=== PATIENT | female | born 1980 | race Caucasian/White ===

== ENCOUNTER 2022-08-05 06:57 | Day surgery (SDC) | payer BC ==
[2022-08-02 13:21] LABS: Absolute Lymphocytes (CBC) 3.2 K/uL (0.7-4.9); Lymphocytes % 29.6 % (15.3-44.8); MPV 7.7 fL (7.6-11.3); RBC Red Blood Cell Count 4.59 M/uL (3.86-4.86)
[2022-08-02 13:38] LABS: Albumin 3.7 g/dL (3.4-5.0); Bilirubin Direct 0.1 mg/dL (0-0.2); Bilirubin Total 0.5 mg/dL (0.2-1.0); Potassium 3.6 mmol/L (3.5-5.1); Protein, Total 7.4 g/dL (6.4-8.2)
--- NOTE | 2022-08-02 14:51 | RAD REPORT ---
EXAM DESCRIPTION: Sasha Machado (2 Views)08/02/2022 1:23 pm CLINICAL HISTORY: Preop for gallbladder surgery COMPARISON: None FINDINGS: The lungs appear clear of acute infiltrate. The heart is normal size IMPRESSION: No acute abnormalities displayed
--- NOTE | 2022-08-03 12:36 | EKG ---
Test Date: 2022-08-02 Test Time: 13:08:28 Relay Shop Tester: PUNEET MEASUREMENT RESULTS: Intervals: Rate: 79 AR: 166 QRSD: 86 QT: 354 QTc: 405 [place]: P: 65 AR: 166 QRS: 55 T: 50 INTERPRETIVE STATEMENTS: Normal sinus rhythm Normal ECG No previous ECG available for comparison Electronically Signed On 08-03-22 12:35:45 CDT by Ashkan Johnson
[2022-08-05] MEDS ORDERED: propofoL 200 MG/20 ML VIAL IV ONE (07:57)
[2022-08-05] MEDS ORDERED: FENTANYL CITR 100 MCG/2 ML ONE (07:58)
[2022-08-05] MEDS ORDERED: ROCURONIUM 50 MG/5 ML VIAL IV ONE (07:58)
[2022-08-05] MEDS ORDERED: LIDOCAINE 2% MPF 5 ML VIAL ONE (07:59)
[2022-08-05] MEDS ORDERED: dexAMETHasone 10 MG/ML VIAL ONE (07:59)
[2022-08-05] MEDS ORDERED: MIDAZOLAM HCL 2 MG/2 ML INJ ONE (08:00)
[2022-08-05] MEDS ORDERED: KETOROLAC 30 MG/ML INJ ONE (08:00)
[2022-08-05] MEDS ORDERED: ONDANSETRON 4 MG/2 ML VIAL ONE (08:00)
[2022-08-05] MEDS ORDERED: CELECOXIB 100 MG CAPSULE ONE (08:17)
[2022-08-05] MEDS ORDERED: ACETAMINOPHEN 500 MG TAB ONE (08:18)
[2022-08-05] MEDS ORDERED: SCOPOLAMINE HYDROBROMIDE PATCH TD ONE (08:18)
[2022-08-05] MEDS ORDERED: NS 0.9% VIAL 10 ML ONE (09:33)
[2022-08-05] MEDS ORDERED: GLYCOPYRROLATE 0.2 MG/ML SYR ONE (10:17)
[2022-08-05] MEDS ORDERED: NEOSTIGMINE 1 MG/ML -5 ML ONE (10:17)
[2022-08-05] MEDS ORDERED: Ringers Lactate 1,000 ML IV ONE (10:24)
--- NOTE | 2022-08-05 10:27 | P.BOP ---
Preoperative diagnosis: acute cholecystitis, symptomatic cholelithiasis Postoperative diagnosis: same Primary procedure: Laparoscopic cholecystectomy Bullet Assembly Press Setter Operator: DARIEL ALEJANDRA (DIETETICS DIRECTOR) Estimated blood loss: <10cc Specimen: gb Findings: as above Anesthesia: General Complications: None Transferred to: ICU Condition: Good
[2022-08-05] MEDS: PROMETHAZINE INJ 25 MG/ML AMP ONE ×2 (10:45→11:05)
[2022-08-05] MEDS ORDERED: HYDROMORPHONE HCL 1 MG/ML INJ ONE (11:09)
[2022-08-05] MEDS ORDERED: METOCLOPRAMIDE 10 MG/2mL INJ ONE (12:17)
[2022-08-05] MEDS ORDERED: HYDROCODONE/APAP 10/325 TAB ONE (13:09)
[2022-08-05 13:26] VITALS: BP 155/87; TEMP 96.8; O2SAT 98
--- NOTE | 2022-08-05 22:21 | OP ---
Date of Procedure: 08/05/2022 Surgeon: Dawit Landa MD Diagnoses: Acute cholecystitis, symptomatic cholelithiasis. Postoperative Diagnoses: Acute cholecystitis, symptomatic cholelithiasis. Procedure: Laparoscopic cholecystectomy. Anesthesia: General plus local. Complications: None. Estimated Blood Loss: Less than 10 cc. Indication: This is a case of a 41-year-old patient comes to us with above diagnoses. Fully explain ed the benefits, alternatives, and risks of laparoscopic possible, open cholecystectomy, which includ e, but not limited to infection, bleeding, damage to adjacent structures, anesthesia complication, ch oledocholithiasis, bile leak, pancreatitis, TN, and even . She also understands this may not re lieve the symptoms. She might need more than one surgical intervention. She understood, signed a co nsent. We also explained to her the importance of losing weight. She weighs right now 240 and 5 fee t tall. She should discuss that with the primary doctor for alternatives of trying to lose some weig ht. Description Of Procedure: The patient was brought to the operating room, placed in supine position a nesthesia was done without complication. Abdominal area was prepped and draped in usual sterile fash ion. Marcaine 0.5% was injected for local anesthetic followed by sharp incision of the skin in the i nfraumbilical region. Incision was carried down to fascia, which was opened under direct vision. Pe ritoneum was encountered, opened under direct vision. Vicryl #1 placed inside the fascia. Daniel tr ocar was carefully introduced. Pneumoperitoneum was obtained. I proceeded to place 3 more trocars, 5 mm each one of them, in epigastric, right upper quadrant area under direct visualization. This all owed me to put a grasper in the fundus of the gallbladder. The gallbladder is distended, so we used an Endo needle under direct visualization and deflated the gallbladder partially. We put a grasper i n the area, removed the needle under direct visualization, put another grasper in the infundibulum, r etracting the gallbladder in the inferolateral fashion exposing the triangle of Calot, obtaining crit ical view. The cystic duct and cystic artery were clearly isolated, freed circumferentially and a co nnection between those and the gallbladder were clearly identified. I proceeded to ligate those by u sing at least 3 clips proximal, 1 clip distal, ligation in middle. Same was done with the cystic art beni. No bile leak. No bleeding. The gallbladder was removed from liver using Bovie cauterizer and removed from abdominal cavity using EndoCatch through the umbilical incision. The area was inspected once again. Clips were intact. No bile leak. No bleeding. Gallbladder fossa with no bleeding. A t that moment, I proceeded to remove the trocars under direct visualization. Deflated pneumoperitone um. Closed the fascia with #1 Vicryl. Irrigated subcu incision, closed that with 3-0 chromic and sk in with a subcuticular fashion with 3-0 chromic and Steri-Strips on top. Sponge count and instrument counts correct. Patient tolerated the procedure well. Patient was sent to recovery in stable condi tion. Disposition: Home. Activity: As tolerated. No heavy lifting. Followup: My office in 1 week. Call for appointment at [phone]. Keep the area dry for 48 hours, t hen may shower. Keep Steri-Strips intact. We will call a prescription from the office. RUCHI Voice ID: [id number] Report ID: [id number]
== END 2022-08-05 13:25 | disposition home or self-care (01) ==
LOC: OR 06:57
PROVIDERS: ATTEND Surgery
PROC: 0FT44ZZ Resection of Gallbladder, Percutaneous Endoscopic Approach (ICD-10-PCS; principal; 2022-08-05 09:15)
DX: K80.10 Calculus of gallbladder with chronic cholecystitis without obstruction (principal); R10.11 Right upper quadrant pain
CPT/HCPCS: 93005; 85025; 80048; 36415; 82150; 80076; 88304; 83690; 71046; 47562; J2704; J2765; J2550; J2001; J2250; J3010; J1100; A4216; J1170; J2710; J7120; J2405

== ENCOUNTER 2022-08-06 03:18 | Emergency (ER) | payer BC ==
[2022-08-06] MEDS ORDERED: HYDROMORPHONE HCL 1 MG/ML INJ ONE ×2 (04:01→06:41)
[2022-08-06] MEDS ORDERED: NA CHLORIDE 0.9% 1,000 ML ONE (04:01)
[2022-08-06] MEDS ORDERED: ONDANSETRON 4 MG/2 ML VIAL ONE (04:01)
[2022-08-06 04:38] LABS: Absolute Lymphocytes (CBC) 2.7 K/uL (0.7-4.9); Hematocrit 41.1 % (36.0-45.0); MPV 7.5 fL (7.6-11.3); RBC Red Blood Cell Count 4.89 M/uL (3.86-4.86)
[2022-08-06 04:57] LABS: Albumin 3.9 g/dL (3.4-5.0); Bilirubin Total 0.8 mg/dL (0.2-1.0); Potassium 3.5 mmol/L (3.5-5.1)
--- NOTE | 2022-08-06 06:23 | RAD REPORT ---
EXAM DESCRIPTION: CT - Abdomen Pelvis W Contrast - 08/06/2022 5:36 am CLINICAL HISTORY: abd pain post op chole1 the earlier COMPARISON: No comparisons TECHNIQUE: Biphasic, helical CT imaging of the abdomen and pelvis was performed following 100 ml non -ionic IV contrast. Oral contrast: No. All CT scans are performed using dose optimization technique as appropriate and may include automated exposure control or mA/KV adjustment according to patient size. FINDINGS: Lung base atelectasis seen. No focal infiltrate, aspiration or pleural fluid changes. No p ericardial effusion. The liver, spleen, and pancreas show no suspicious findings. Cholecystectomy clips are present. No he matoma or other abnormality in the gallbladder fossa. No biliary tree dilatation. Symmetric renal function is seen with no hydronephrosis or suspicious renal mass. No pyelonephritis o r acute parenchymal process. No bladder abnormalities. No adrenal abnormalities. Uterus and ovaries s how no suspicious findings. IUD is in place. No dilated bowel loops or bowel wall thickening. No appendicitis findings. Minimal free fluid is seen in the peritoneal cavity well within normal limits for post outpatient. Minimal air and stranding se en in the periumbilical surgical access site. There is additional broad area of contusion and small a benita of the area in the subcutaneous fatty tissues of the right mid abdomen also from surgical axis . No large hematoma in the subcutaneous fat. No mass or bulky lymphadenopathy. No suspicious bony findings. IMPRESSION: Normal postoperative changes are seen in the peritoneal cavity. No peritoneal or retrope ritoneal significant finding. Broad area contusion with air in the subcutaneous fatty tissues of the right mid abdomen related to t he surgical access. No hematoma.
--- NOTE | 2022-08-06 06:31 | ER ---
Nurse's Notes [facility] Name: Criss Estrada Age: 41 yrs Sex: Female : 1980 Arrival Date: 08/06/2022 Time: 03:23 Bed 5 Private MD: Diagnosis: post operative pain Presentation: 08/06 03:33 Chief complaint: Patient states: she had her gallbladder removed yesterday morning by bb Dr Landa and she started having severe abdominal pain tonight around 1200 she took her tylenol #3 but it is not helping the pain is so bad she is dry heaving. Coronavirus screen: At this time, the client does not indicate any symptoms associated with coronavirus-19. Ebola Screen: No symptoms or risks identified at this time. Initial Sepsis Screen: Does the patient meet any 2 criteria? No. Patient's initial sepsis screen is negative. Does the patient have a suspected source of infection? No. Patient's initial sepsis screen is negative. Risk Assessment: Do you want to hurt yourself or someone else? Patient reports no desire to harm self or others. Onset of symptoms was August 06, 2022. 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 - Social history:: Smoking status: Patient denies any tobacco usage or history of. Screenin:53 Abuse screen: Denies threats or abuse. Denies injuries from another. Nutritional ll3 screening: No deficits noted. Tuberculosis screening: No symptoms or risk factors identified. Fall Risk None identified. Assessment: 04:00 General: Appears distressed, uncomfortable, obese, Behavior is restless. Pain: kl Complains of pain in epigastric area Pain currently is 10 out of 10 on a pain scale. Neuro: No deficits noted. Cardiovascular: No deficits noted. Respiratory: No deficits noted. GI: Reports lower abdominal pain. : No deficits noted. No signs and/or symptoms were reported regarding the genitourinary system. EENT: No deficits noted. No signs and/or symptoms were reported regarding the EENT system. Derm: No deficits noted. No signs and/or symptoms reported regarding the dermatologic system. Vital Signs: 03:33 BP 145 / 85; Pulse 88; Resp 20 S; Temp 98.3(O); Pulse Ox 96% on R/A; Weight 108.86 kg bb (R); Height 5 ft. 6 in. (167.64 cm) (R); Pain 10/10; 05:42 BP 141 / 79; Pulse 88; Resp 17; Pulse Ox 96% on R/A; ll3 06:54 BP 124 / 77; Pulse 84; Resp 17; Pulse Ox 96% on R/A; ll3 03:33 Body Mass Index 38.74 (108.86 kg, 167.64 cm) bb ED Course: 03:23 Patient arrived in ED. bp1 03:32 Shabnam Lockwood MD is Attending Physician. sp3 03:35 Triage completed. bb 03:35 Arm band placed on Patient placed in an exam room, on a stretcher, on pulse oximetry. bb Family accompanied patient. 04:24 CBC with Diff Sent. kd3 04:24 CMP Sent. kd3 04:24 Lipase Sent. kd3 04:24 Inserted saline lock: 20 gauge in right antecubital area, using aseptic technique. kd3 Blood collected. ultrasound guided. 05:38 CT Abd/Pelvis - IV Contrast Only In Process Unspecified. EDMS 06:30 Dawit Landa MD is Referral Physician. sp3 06:53 Patient has correct armband on for positive identification. Placed in gown. Bed in low ll3 position. Call light in reach. Side rails up X 1. Adult w/ patient. 06:53 No provider procedures requiring assistance completed. IV discontinued, intact, ll3 bleeding controlled, No redness/swelling at site. Pressure dressing applied. Administered Medications: 04:21 Drug: NS 0.9% 1000 ml Route: IV; Rate: 1 bolus; Site: right antecubital; kd3 06:56 Follow up: Response: No adverse reaction; IV Status: Completed infusion; IV Intake: ll3 1000ml 04:21 Drug: Zofran (Ondansetron) 4 mg Route: IVP; Site: right antecubital; kd3 06:56 Follow up: Response: No adverse reaction ll3 04:21 Drug: Dilaudid (HYDROmorphone) 1 mg Route: IVP; Site: right antecubital; kd3 05:31 Follow up: Response: No adverse reaction; Marked relief of symptoms 06:48 Drug: Dilaudid (HYDROmorphone) 1 mg Route: IVP; Site: right antecubital; ll3 06:56 Follow up: Response: Medication administered at discharge. ll3 Medication: 06:54 VIS not applicable for this client. ll3 Intake: 06:56 IV: 1000ml; Total: 1000ml. ll3 Outcome: 06:30 Discharge ordered by . sp3 06:53 Discharged to home via wheelchair, with family, with significant other. ll3 06:53 Condition: stable 06:53 Discharge instructions given to patient, significant other, Instructed on discharge instructions, follow up and referral plans. Demonstrated understanding of instructions, follow-up care. 06:56 Patient left the ED. ll3 Signatures: Dispatcher [employer] EDMigdalia Damico RN RN kl Ballard, Brenda, RN RN bb Paniauga, Brittany bp1 Patel, Setul, MD MD sp3 Jamison Heaton RN RN ll3 Enid Rouse RN RN kd3
--- NOTE | 2022-08-06 06:31 | EDPHYS ---
Physician Documentation [facility] Name: Criss Estrada Age: 41 yrs Sex: Female : 1980 Arrival Date: 08/06/2022 Time: 03:23 Bed 5 Private MD: ED Physician Shabnam Lockwood HPI: 08/06 03:39 This 41 yrs old Female presents to ER via Ambulatory with complaints of Post Surgical sp3 Pain. 03:39 41-year-old female with no significant past medical history presents approximately 12 sp3 hours after laparoscopic cholecystectomy performed by Dr. Landa earlier today at this facility. Patient states that she went home at approximately 2 PM had like crackers and soup and has been taking her Tylenol 3 periodically as instructed. Approximately 4:56 PM, her pain started to increase and was represented by sharp pain epigastrically radiating around to the right side. The pain is causing her to dry heave but has not had any emesis. She denies fever, chest pain, shortness of breath, left-sided abdominal pain, diarrhea, rash, bleeding, syncope, or any other symptoms on ROS at this time.. 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 - Social history:: Smoking status: Patient denies any tobacco usage or history of. ROS: 03:41 Constitutional: Negative for fever, chills, and weight loss, Eyes: Negative for injury, sp3 pain, redness, and discharge, Neck: Negative for injury, pain, and swelling, Cardiovascular: Negative for chest pain, palpitations, and edema, Respiratory: Negative for shortness of breath, cough, wheezing, and pleuritic chest pain, Back: Negative for injury and pain, MS/Extremity: Negative for injury and deformity, Skin: Negative for injury, rash, and discoloration, Neuro: Negative for headache, weakness, numbness, tingling, and seizure. 03:41 All other systems are negative. Exam: 03:41 Constitutional: This is a well developed, well nourished patient who is awake, alert, sp3 and in no acute distress. Head/Face: Normocephalic, atraumatic. Eyes: Pupils equal round and reactive to light, extra-ocular motions intact. Lids and lashes normal. Conjunctiva and sclera are non-icteric and not injected. Cornea within normal limits. Periorbital areas with no swelling, redness, or edema. Neck: Trachea midline, no thyromegaly or masses palpated, and no cervical lymphadenopathy. Supple, full range of motion without nuchal rigidity, or vertebral point tenderness. No Meningismus. Chest/axilla: Normal chest wall appearance and motion. Nontender with no deformity. No lesions are appreciated. Cardiovascular: Regular rate and rhythm with a normal S1 and S2. No gallops, murmurs, or rubs. Normal PMI, no JVD. No pulse deficits. Respiratory: Lungs have equal breath sounds bilaterally, clear to auscultation and percussion. No rales, rhonchi or wheezes noted. No increased work of breathing, no retractions or nasal flaring. Back: No spinal tenderness. No costovertebral tenderness. Full range of motion. Skin: Warm, dry with normal turgor. Normal color with no rashes, no lesions, and no evidence of cellulitis. MS/ Extremity: Pulses equal, no cyanosis. Neurovascular intact. Full, normal range of motion. Neuro: Awake and alert, GCS 15, oriented to person, place, time, and situation. Cranial nerves II-XII grossly intact. Motor strength 5/5 in all extremities. Sensory grossly intact. Cerebellar exam normal. Normal gait. 03:41 Abdomen/GI: No pain on the right side to palpation without evidence of acute peritonitis. No bleeding at surgical sites.. Vital Signs: 03:33 BP 145 / 85; Pulse 88; Resp 20 S; Temp 98.3(O); Pulse Ox 96% on R/A; Weight 108.86 kg bb (R); Height 5 ft. 6 in. (167.64 cm) (R); Pain 10/10; 05:42 BP 141 / 79; Pulse 88; Resp 17; Pulse Ox 96% on R/A; ll3 06:54 BP 124 / 77; Pulse 84; Resp 17; Pulse Ox 96% on R/A; ll3 03:33 Body Mass Index 38.74 (108.86 kg, 167.64 cm) bb MDM: 03:36 Patient medically screened. sp3 03:42 Data reviewed: vital signs, nurses notes. ED course: 41-year-old female status post sp3 cystectomy approximately 12 hours ago now with right upper quadrant pain. Differential diagnosis includes postop pain, retained gallstone, other complication. Will obtain laboratory values, urinalysis, CT scan of the abdomen and pelvis and administer IV pain and nausea medications. Will discuss with Dr. Landa after work-up is completed for final disposition.. 06:28 ED course: CT demonstrates no acute abnormality or bleeding other than postop air. sp3 Laboratory values are within normal limits with exception of WBC count which has mild elevation and is consistent with prior gallbladder pathology. I discussed case with Dr. Landa who will see patient tomorrow in his office and recommended no further intervention. Patient is okay with the plan will receive 1 additional dose of Dilaudid prior to discharge and she will call office for appointment for tomorrow.. 08/06 03:36 Order name: CBC with Diff; Complete Time: 05:50 sp3 08/06 03:36 Order name: CMP; Complete Time: 05:50 sp3 08/06 03:36 Order name: Lipase; Complete Time: 05:50 sp3 08/06 03:36 Order name: CT Abd/Pelvis - IV Contrast Only; Complete Time: 06:24 sp3 08/06 03:36 Order name: IV Saline Lock; Complete Time: 04:21 sp3 08/06 03:36 Order name: Labs collected and sent; Complete Time: 04:23 sp3 08/06 03:36 Order name: NPO; Complete Time: 04:50 sp3 Administered Medications: 04:21 Drug: NS 0.9% 1000 ml Route: IV; Rate: 1 bolus; Site: right antecubital; kd3 06:56 Follow up: Response: No adverse reaction; IV Status: Completed infusion; IV Intake: ll3 1000ml 04:21 Drug: Zofran (Ondansetron) 4 mg Route: IVP; Site: right antecubital; kd3 06:56 Follow up: Response: No adverse reaction ll3 04:21 Drug: Dilaudid (HYDROmorphone) 1 mg Route: IVP; Site: right antecubital; kd3 05:31 Follow up: Response: No adverse reaction; Marked relief of symptoms kl 06:48 Drug: Dilaudid (HYDROmorphone) 1 mg Route: IVP; Site: right antecubital; ll3 06:56 Follow up: Response: Medication administered at discharge. ll3 Disposition Summary: 08/06/22 06:30 Discharge Ordered Location: Home sp3 Condition: Stable sp3 Diagnosis - post operative pain sp3 Followup: sp3 - With: Dawit Landa MD - When: Tomorrow - Reason: Recheck today's complaints Discharge Instructions: - Discharge Summary Sheet sp3 - Pain Relief Before and After Surgery sp3 Forms: - Medication Reconciliation Form sp3 - Thank You Letter sp3 - Antibiotic Education sp3 - Prescription Opioid Use sp3 Signatures: Dispatcher [employer] Sarah Bean, RN RN Shabnam Harry MD MD sp3 Jamison Heaton RN RN ll3 Enid Rouse RN RN kd3 Migdalia Sumner RN kl
[2022-08-06 08:14] VITALS: TEMP 98.3; O2SAT 96
[2022-08-06 08:16] VITALS: BP 124/77
== END 2022-08-06 06:56 | disposition home or self-care (01) ==
LOC: ER 03:18
DX: G89.18 Other acute postprocedural pain (principal); Z90.49 Acquired absence of other specified parts of digestive tract
CPT/HCPCS: 96361; 85025; 36415; 83690; 80053; 74177; 96375; 96374; 99284; Q9967; J1170 ×2; J7030; J2405

== ENCOUNTER 2022-08-06 13:39 | Emergency (ER) | payer BC ==
[2022-08-06] MEDS ORDERED: MORPHINE 4 MG/ML SYR ONE (14:35)
[2022-08-06] MEDS ORDERED: ONDANSETRON 4 MG/2 ML VIAL ONE (14:35)
[2022-08-06] MEDS ORDERED: NA CHLORIDE 0.9% 1,000 ML ONE (14:35)
[2022-08-06 14:42] LABS: Absolute Lymphocytes (CBC) 2.3 K/uL (0.7-4.9); Hematocrit 39.6 % (36.0-45.0); Lymphocytes % 14.4 % (15.3-44.8); MCV 85.4 fL (80-100); MPV 7.3 fL (7.6-11.3); RBC Red Blood Cell Count 4.64 M/uL (3.86-4.86)
[2022-08-06 15:01] LABS: Albumin 3.6 g/dL (3.4-5.0); Potassium 3.9 mmol/L (3.5-5.1); Protein, Total 7.4 g/dL (6.4-8.2)
[2022-08-06] MEDS ORDERED: HYDROMORPHONE HCL 1 MG/ML INJ ONE (15:23)
--- NOTE | 2022-08-06 16:51 | EDPHYS ---
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 15:30 The patient presents with abdominal pain that is diffuse. Onset: The symptoms/episode rn began/occurred yesterday. The symptoms do not radiate. Associated signs and symptoms: Pertinent negatives: nausea and vomiting, blood in stools, fever, shortness of breath. Modifying factors: The symptoms are alleviated by nothing, the symptoms are aggravated by. 15:58 Severity of pain: At its worst the pain was moderate in the emergency department the rn pain is unchanged. The patient has experienced a previous episode. The patient has been recently seen at the [facility] Emergency Department. Pt s/p cholecystectomy yesterday with Dr. Landa, went home in pain, came back last night because tylenol#3 not taking her pain away, CT neg for acute complications, returns again for persistent pain. NO fever/vomiting. Has not had a bowel movement yet. . Historical: - Allergies: 14:13 No Known Allergies; mb8 - PSHx: 14:13 arm surgery; section; Cholecystectomy; mb8 - Social history:: Smoking status: Patient denies any tobacco usage or history of. - Family history:: not pertinent. - Hospitalizations: : No recent hospitalization is reported. ROS: 15:59 Constitutional: Negative for fever, chills, and weight loss, Eyes: Negative for injury, rn pain, redness, and discharge, Cardiovascular: Negative for chest pain, palpitations, and edema, Respiratory: Negative for shortness of breath, cough, wheezing, and pleuritic chest pain, Abdomen/GI: + abd pain and constipation Back: Negative for injury and pain, MS/Extremity: Negative for injury and deformity, Skin: Negative for injury, rash, and discoloration, Neuro: Negative for headache, weakness, numbness, tingling, and seizure. Exam: 15:59 Constitutional: This is a well developed, well nourished patient who is awake, alert, rn and in no acute distress. Head/Face: Normocephalic, atraumatic. Cardiovascular: Regular rate and rhythm. No pulse deficits. Respiratory: No increased work of breathing, no retractions or nasal flaring. Abdomen/GI: soft, + mild diffuse abd tenderness, no peritoneal signs Skin: Warm, dry MS/ Extremity: Pulses equal, no cyanosis. Neuro: Awake and alert, GCS 15, oriented to person, place, time, and situation. Vital Signs: 14:10 BP 140 / 84; Pulse 95; Resp 20; Temp 97.6; Pulse Ox 97% on R/A; Pain 10/10; mb8 14:57 BP 143 / 79; Pulse 94; Resp 20; Pulse Ox 95% on R/A; Pain 6/10; mb8 16:08 BP 150 / 81; Pulse 90; Resp 14; Pulse Ox 95% ; Pain 5/10; mb8 16:50 BP 132 / 82; Pulse 94; Resp 16; Pulse Ox 97% on R/A; Pain 4/10; mb8 MDM: 14:09 Patient medically screened. rn 16:47 Differential diagnosis: non-specific abd pain, post-op inflammation, post-op pain. Data rn reviewed: vital signs, nurses notes, lab test result(s), and as a result, I will discharge patient. Counseling: I had a detailed discussion with the patient and/or guardian regarding: the historical points, exam findings, and any diagnostic results supporting the discharge/admit diagnosis, lab results, the need for outpatient follow up, to return to the emergency department if symptoms worsen or persist or if there are any questions or concerns that arise at home. Response to treatment: the patient's symptoms have markedly improved after treatment, and as a result, I will discharge patient. Special discussion: Based on the patient's Hx, exam, and Dx evaluation, there is no indication for emergent surgery or inpatient Tx. It is understood by the patient/guardian that if the Sx's persist or worsen they need to return immediately for re-evaluation. I discussed with the patient/guardian in detail that at this point there is no indication for admission to the hospital. It is understood, however, that if the symptoms persist or worsen the patient needs to return immediately for re-evaluation. Based on the history and exam findings, there is no indication for further emergent testing or inpatient evaluation. I discussed with the patient/guardian the need to see the general surgeon for further evaluation of the symptoms. ED course: NO acute findings in CT abdomen less than 12 hours ago, improvement in WBC and no other abnormality in blood, stable vitals, pain improved. Called Dr. Landa twice, no answer, will dc home with current medication and can call [facility] if needs stronger pain meds. . 08/06 14:20 Order name: CBC with Diff; Complete Time: 15:18 rn 08/06 14:20 Order name: CMP; Complete Time: 15:18 rn 08/06 14:20 Order name: Lipase; Complete Time: 15:18 rn 08/06 14:20 Order name: IV Saline Lock; Complete Time: 14:48 rn 08/06 14:20 Order name: Labs collected and sent; Complete Time: 14:48 rn Administered Medications: 14:36 Drug: NS 0.9% 1000 ml Route: IV; Rate: 1 bolus; Site: left antecubital; mb8 14:36 Drug: Zofran (Ondansetron) 4 mg Route: IVP; Site: left antecubital; mb8 15:26 Follow up: Response: No adverse reaction; Nausea is decreased mb8 14:38 Drug: morphine 4 mg Route: IVP; Infused Over: 4 mins; Site: left antecubital; mb8 15:26 Follow up: Response: No adverse reaction; Pain is decreased mb8 15:26 Drug: Dilaudid (HYDROmorphone) 1 mg Route: IVP; Site: left antecubital; mb8 16:19 Follow up: Response: No adverse reaction; Pain is unchanged, physician notified mb8 Disposition Summary: 08/06/22 16:51 Discharge Ordered Location: Home rn Problem: new rn Symptoms: have improved rn Condition: Stable rn Diagnosis - Abdominal pain, unspecified - Post-operative rn Followup: rn - With: Dawit Landa MD - When: As needed - Reason: Recheck today's complaints, Re-evaluation by your physician Discharge Instructions: - Discharge Summary Sheet rn - Abdominal Pain, Adult rn - Minimally Invasive Cholecystectomy, Care After rn - Cholecystostomy, Care After rn Forms: - Medication Reconciliation Form rn - Thank You Letter rn - Antibiotic returned item clerk - Prescription Opioid Use rn Signatures: Dispatcher [employer] Faisal Arenas MD MD rn Bates, Michael, JIN RN mb8
--- NOTE | 2022-08-06 16:51 | ER ---
Nurse's Notes [facility] Name: Criss Estrada Age: 41 yrs Sex: Female : 1980 Arrival Date: 08/06/2022 Time: 13:40 Bed 17 Private MD: Diagnosis: Abdominal pain, [id number] Presentation: 08/06 14:10 Chief complaint: Patient states: gallbladder surgery yesterday, left hospital around mb8 1300. Had to come back around midnight last night for pain control due to the tylenol-3 not helping. Patient reports they did not give her a new prescription but told her to follow up with her surgeon. She reports calling the office all day but has not heard back. Coronavirus screen: Vaccine status: Patient reports being unvaccinated. Ebola Screen: Patient negative for fever greater than or equal to 101.5 degrees Fahrenheit, and additional compatible Ebola Virus Disease symptoms Patient denies exposure to infectious person. Patient denies travel to an Ebola-affected area in the 21 days before illness onset. Initial Sepsis Screen: Does the patient meet any 2 criteria? No. Patient's initial sepsis screen is negative. Does the patient have a suspected source of infection? No. Patient's initial sepsis screen is negative. Risk Assessment: Do you want to hurt yourself or someone else? Patient reports no desire to harm self or others. Onset of symptoms was August 05, 2022. 14:10 Method Of Arrival: [facility] 14:10 Acuity: SOLOMON 3 mb8 Triage Assessment: 14:13 General: Appears uncomfortable, Behavior is cooperative, appropriate for age, restless. mb8 Pain: Complains of pain in abdomen Pain does not radiate. Pain currently is 10 out of 10 on a pain scale. Quality of pain is described as aching. GI: Reports nausea, vomiting. Historical: - Allergies: 14:13 No Known Allergies; mb8 - PSHx: 14:13 arm surgery; section; Cholecystectomy; mb8 - Social history:: Smoking status: Patient denies any tobacco usage or history of. - Family history:: not pertinent. - Hospitalizations: : No recent hospitalization is reported. Screenin:14 Abuse screen: Denies threats or abuse. Denies injuries from another. Nutritional mb8 screening: No deficits noted. Tuberculosis screening: No symptoms or risk factors identified. Fall Risk None identified. Assessment: 14:13 General: see triage assessment. mb8 16:09 Reassessment: Patient and/or family updated on plan of care and expected duration. Pain mb8 level reassessed. Patient is alert, oriented x 3, equal unlabored respirations, skin warm/dry/pink. Patient states Dilaudid is not helping her pain. Vital Signs: 14:10 BP 140 / 84; Pulse 95; Resp 20; Temp 97.6; Pulse Ox 97% on R/A; Pain 10/10; mb8 14:57 BP 143 / 79; Pulse 94; Resp 20; Pulse Ox 95% on R/A; Pain 6/10; mb8 16:08 BP 150 / 81; Pulse 90; Resp 14; Pulse Ox 95% ; Pain 5/10; mb8 16:50 BP 132 / 82; Pulse 94; Resp 16; Pulse Ox 97% on R/A; Pain 4/10; mb8 ED Course: 13:40 Patient arrived in ED. rg4 14:09 Faisal Trinh MD is Attending Physician. rn 14:10 Joaquin Ambrosio RN is Primary Nurse. mb8 14:13 Triage completed. mb8 14:13 Arm band placed on. mb8 14:14 Patient has correct armband on for positive identification. Fall risk band placed. mb8 Placed in gown. Bed in low position. Call light in reach. Side rails up X2. Client placed on continuous cardiac and pulse oximetry monitoring. NIBP monitoring applied. 14:14 No provider procedures requiring assistance completed. mb8 16:50 Dawit Landa MD is Referral Physician. rn 16:55 IV discontinued, intact, bleeding controlled, No redness/swelling at site. Pressure mb8 dressing applied. Administered Medications: 14:36 Drug: NS 0.9% 1000 ml Route: IV; Rate: 1 bolus; Site: left antecubital; mb8 14:36 Drug: Zofran (Ondansetron) 4 mg Route: IVP; Site: left antecubital; mb8 15:26 Follow up: Response: No adverse reaction; Nausea is decreased mb8 14:38 Drug: morphine 4 mg Route: IVP; Infused Over: 4 mins; Site: left antecubital; mb8 15:26 Follow up: Response: No adverse reaction; Pain is decreased mb8 15:26 Drug: Dilaudid (HYDROmorphone) 1 mg Route: IVP; Site: left antecubital; mb8 16:19 Follow up: Response: No adverse reaction; Pain is unchanged, physician notified mb8 Medication: 14:13 VIS not applicable for this client. mb8 Outcome: 16:51 Discharge ordered by . rn 16:55 Discharged to home ambulatory. mb8 16:55 Condition: stable 16:55 Discharge instructions given to patient, Instructed on discharge instructions, follow up and referral plans. no drinking with medication, no driving heavy equipment, medication usage, Demonstrated understanding of instructions, follow-up care, medications. 17:00 Patient left the ED. mb8 Signatures: Faisal Trinh MD MD rn Garcia, Rubi 4 Joaquin Ambrosio RN RN mb8 Corrections: (The following items were deleted from the chart) 16:09 14:57 BP 143 / 79; Pulse 94bpm; Resp 20bpm; Pulse Ox 95% RA; mb8 mb8
[2022-08-06 18:44] VITALS: BP 132/82; O2SAT 97
== END 2022-08-06 17:00 | disposition home or self-care (01) ==
LOC: ER 13:39
DX: R10.9 Unspecified abdominal pain (principal); G89.18 Other acute postprocedural pain
CPT/HCPCS: 85025; 36415; 83690; 80053; 96375; 96374; 99283; J1170; J7030; J2405